=== PATIENT | male | born 1950 | race Caucasian/White ===

== ENCOUNTER 2022-02-15 09:18 | Day surgery (SDC) | payer OTHER ==
[~2022-02-15] VITALS: Ht 170.2 cm; Wt 86.2 kg
[2022-02-15] MEDS ORDERED: diphenhydrAMINE 50 MG/ML VIAL ONE (10:03)
[2022-02-15] MEDS ORDERED: MIDAZOLAM 5 MG/5 ML VIAL ONE (10:03)
[2022-02-15] MEDS ORDERED: fentaNYL citrate 0.05 MG/ML VIAL ONE (10:03)
[2022-02-15] MEDS ORDERED: LIDOCAINE 2% 100 MG/5 ML UJET TP ONE (10:03)
[2022-02-15] MEDS ORDERED: MIDAZOLAM 2 MG/2 ML VIAL IVP ONE (11:45)
[2022-02-15] MEDS ORDERED: fentaNYL citrate 0.05 MG/ML VIAL IVP ONE (11:45)
== END 2022-02-15 11:55 | disposition home or self-care (01) ==
LOC: MOR 09:18 → MMU 09:19 → MOR 11:55
PROVIDERS: ATTEND Internal Medicine Gastroenterology
DX: Z12.11 Encounter for screening for malignant neoplasm of colon (principal); Z20.822 Contact with and (suspected) exposure to COVID-19; Z86.718 Personal history of other venous thrombosis and embolism; Z79.01 Long term (current) use of anticoagulants; Z79.82 Long term (current) use of aspirin; Z95.0 Presence of cardiac pacemaker; Z79.899 Other long term (current) drug therapy
CPT/HCPCS: 45378; 87426; J2250; J3010; J1200